=== PATIENT | male | born 1980 | race Hispanic/Latino ===

== ENCOUNTER → 2017-07-19 | Outpatient (CLI) | payer OTHER ==
--- NOTE | 2017-07-19 12:20 | Diagnostic Imaging Report ---
PROCEDURE:X-RAY ABDOMEN - KUB COMPARISON:02/17/2017 INDICATIONS:FOLLOW UP KIDNEY STONES, BILATERAL FINDINGS: No dilated loops of bowel or abnormal air-fluid levels patterns. No free air underneath the diaphragm. Visualized portions of the lung bases are clear. A 3 mm calcification overlies the left kidney, unchanged. Previously described 4 mm calcification overlying the right kidney is no longer seen. Five non-rib bearing lumbar type vertebral bodies identified. CONCLUSION: 1. Nonobstructive bowel gas pattern. 2. Stable 3 mm calcification overlying the left kidney. The previously described 4 mm calcification overlying the right kidney is no longer seen. Dictated by: Everardo Moore M.D. on 07/19/2017 at 12:19 Electronically approved by: Everardo Moore M.D. on 07/19/2017 at 12:19
== END ==
LOC: RAD 11:31
PROVIDERS: ATTEND Urology
DX: N20.0 Calculus of kidney (principal)
CPT/HCPCS: 74018

== ENCOUNTER → 2017-11-30 | Outpatient (CLI) | payer OTHER ==
--- NOTE | 2017-11-30 20:52 | Diagnostic Imaging Report ---
PROCEDURE:X-RAY ABDOMEN - KUB COMPARISON:None. INDICATIONS:RENAL STONES. RIGHT FLANK PAIN, WITH MICROHEMATURIA FINDINGS: Nonobstructive bowel gas pattern. Stable 3 mm calcific density projecting in the mid to inferior left renal shadow. No other calcifications project over the renal shadows, expected course of the ureters or bladder. No acute bony abnormalities. CONCLUSION: Stable 3 mm nonobstructing calculus in the left kidney. Cyril Mejia M.D. Dictated by: Cyril Mejia M.D. on 11/30/2017 at 17:03 Electronically approved by: Cyril Mejia M.D. on 11/30/2017 at 17:03
== END ==
LOC: RAD 15:37
PROVIDERS: ATTEND Urology
DX: N20.0 Calculus of kidney (principal)
CPT/HCPCS: 74018